=== PATIENT | male | born 1935 | race Caucasian/White ===

== ENCOUNTER 2023-01-27 15:17 | Emergency (ER) | payer MEDICARE, SELFPAY ==
[2023-01-27 15:19] VITALS: BP 140/77; PULSE 77; TEMP 30.5; O2SAT 95
[2023-01-27 15:42] LABS: Basophils Absolute Auto 0.05 K/mm3 (0.00-0.10); Basophils Percent Auto 0.8 % (0.0-1.0); Eosinophils Absolute Auto 0.15 K/mm3 (0.02-0.50); Eosinophils Percent Auto 2.4 % (1.0-6.0); Hematocrit 40.4 % (37.0-46.0); Hemoglobin 13.8 g/dL (12.4-15.3); Immature Granulocyte Absolute 0.02 K/mm3 (0.00-0.00); Immature Granulocyte Percent A 0.3 % (0.0-0.0); Lymphocytes Absolute Auto 1.33 K/mm3 (1.10-4.50); Lymphocytes Percent Auto 21.2 % (18.0-42.0); Mean Corpuscular HGB Conc 34.2 g/dL (32.0-36.0); Mean Corpuscular Hemoglobin 34.1 pg (27.0-31.0); Mean Corpuscular Volume 99.8 fL (78.0-102.0); Mean Platelet Volume 8.5 fl (8.7-11.0); Monocytes Absolute Auto 0.32 K/mm3 (0.10-0.90); Monocytes Percent Auto 5.1 % (2.0-11.0); Neutrophils Absolute Auto 4.4 K/mm3 (1.7-7.2); Neutrophils Percent Auto 70.2 % (50.0-70.0); Platelet Count Result 229 K/mm3 (150-420); Red Blood Count 4.05 M/mm3 (4.70-6.10); White Blood Count 6.3 K/mm3 (4.8-10.8)
--- NOTE | 2023-01-27 15:48 | ED.GIBLEED ---
HPI - GI Bleed General Chief complaint: GI Bleed Stated complaint: bleeding from the rectum Time Seen by Provider: 01/27/23 15:22 Source: patient and family Mode of arrival: ambulatory Limitations: no limitations History of Present Illness HPI Narrative: this is an 87-year-old gentleman that presents with some blood that he noticed on his toilet paper, no overt blood in the rectum or the toilet, currently not on any blood thinners. The patient does have a remote history of hemorrhoids, his vitals are stable blood pressure 140/77 O2 sats of 95% on room air. There is no shortness of breath no chest pain no nausea vomiting no abdominal pain no flank pain no dysuria or hematuria. MD complaint: blood on toilet paper Onset (ago): hour(s) Pain Consistency: intermittent Severity: mild Relieving factors: bowel movement Related Data Allergies Allergy/AdvReac Type Severity Reaction Status Date / Time No Known Allergies Allergy Verified 01/27/23 15:47 Review of Systems Review of Systems: All systems reviewed & are unremarkable except as noted in HPI and below PMFSH Past Medical History Medical History HLD (hyperlipidemia) Exam Const: General: healthy appearing Nutritional Appearance: well nourished Orientation/consciousness: patient oriented x3 Limitations: no limitations HENMT: Head: normal to inspection Eyes: Conjunctivae: conjunctivae normal Neck: Neck: normal visual inspection Chest: Chest palpation & inspection: normal inspection of the chest Resp: Effort & Inspection: normal respiratory effort Auscultation: clear to auscultation bilaterally Cardio: Rate: regular rate Rhythm: regular rhythm GI: GI Palp: Yes Soft to palpation Other: rectal exam is does show a internal hemorrhoid that is protruding slightly at about the 7 o'clock position with no current bleeding other was some bright red around the rectal and anal area with no current bleeding. Skin: General skin exam: normal color Rashes: no rashes Neuro: General: patient oriented x3 and moves all extremities Psych: Mental Status: mental status grossly normal Affect: normal affect Course Course Emergency Course: Rectal exam performed and did show that there was a internal hemorrhoid. CBC was performed which shows normal blood counts. Patient is stable comfortable with normal vitals with a blood pressure 140/77 and O2 sats of 95% on room air. Vital Signs Vital signs: Vital Signs Temperature 30.5 C L 01/27/23 15:19 Pulse Rate 77 01/27/23 15:19 Blood Pressure 140/77 01/27/23 15:19 Pulse Oximetry 95 01/27/23 15:19 Oxygen Delivery Room Air 01/27/23 15:19 Temperature 30.5 C L 01/27/23 15:19 Pulse Rate 77 01/27/23 15:19 Blood Pressure 140/77 01/27/23 15:19 Pulse Oximetry 95 01/27/23 15:19 Oxygen Delivery Room Air 01/27/23 15:19 MDM - GI Bleed Lab Data 01/27/23 15:38 Labs: Lab Results 01/27/23 Range/Units 15:38 WBC 6.3 (4.8-10.8) K/mm3 RBC 4.05 L (4.70-6.10) M/mm3 Hgb 13.8 (12.4-15.3) g/dL Hct 40.4 (37.0-46.0) % MCV 99.8 (78.0-102.0) fL MCH 34.1 H (27.0-31.0) pg MCHC 34.2 (32.0-36.0) g/dL RDW 13.0 (11.6-14.4) % Plt Count 229 (150-420) K/mm3 MPV 8.5 L (8.7-11.0) fl Immature Gran % (Auto) 0.3 H (0.0-0.0) % Neut % (Auto) 70.2 H (50.0-70.0) % Lymph % (Auto) 21.2 (18.0-42.0) % [place] % (Auto) 5.1 (2.0-11.0) % Eos % (Auto) 2.4 (1.0-6.0) % Baso % (Auto) 0.8 (0.0-1.0) % Lymph # (Auto) 1.33 (1.10-4.50) K/mm3 [place] # (Auto) 0.32 (0.10-0.90) K/mm3 Eos # (Auto) 0.15 (0.02-0.50) K/mm3 Baso # (Auto) 0.05 (0.00-0.10) K/mm3 Abs Immat Gran (auto) 0.02 H (0.00-0.00) K/mm3 Absolute Neuts (auto) 4.4 (1.7-7.2) K/mm3 Absolute Nucleated RBC 0.00 (0.00-0.00) K/mm3 Nucleated RBC % 0.0 (0-0.0) % Critical Care Time Critical Care Time Critical Care Time: No
== END 2023-01-27 16:14 | disposition home or self-care (01) ==
LOC: CHSED 16:02
PROVIDERS: Emergency Provider Emergency Medicine; PCP Family Medicine
DX: K64.9 Unspecified hemorrhoids (principal); E78.5 Hyperlipidemia, unspecified
CPT/HCPCS: 36415; 85025; 99283